=== PATIENT | male | born 1975 | race Caucasian/White ===

== ENCOUNTER 2017-03-23 21:55 | Emergency (ER) | payer MEDICAID ==
[~2017-03-23] VITALS: Ht 170.2 cm; Wt 104.8 kg
[2017-03-24 01:07] VITALS: BP 129/84
== END 2017-03-24 03:00 | disposition home or self-care (01) ==
LOC: ED 21:55
DX: B34.9 Viral infection, unspecified (principal); M25.511 Pain in right shoulder; M25.561 Pain in right knee